=== PATIENT | female | born 1985 ===

== ENCOUNTER 2018-01-29 05:52 | Inpatient (IN) | payer OTHER, SELFPAY ==
[2018-01-29] VITALS (12 sets, daily range): BP systolic 87–114; BP diastolic 26–66
[~2018-01-29] VITALS: Ht 158.8 cm; Wt 67.1 kg
[~2018-01-29 05:52] MED LIST: ACIDOPHILUS1 EAC4 PO; BENADRYL ALLERG25 M1 PO; FLOVENT2 PUFF1 INH; NORCO 10-325 T1 EACH ORAL; TRILEPTAL600 MG PO; VENTOLIN HFA18 GM INH; ZYRTEC10 MG ORAL
[2018-01-29] MEDS ORDERED: Dexamethasone 20mg/5ml IVP ONE (07:00)
[2018-01-29] MEDS ORDERED: Vancomycin 1 GM in D5W 275 ML IVPB ONE (07:00)
[2018-01-29] MEDS ORDERED: Propofol 1,000mg/ 100ml btl IV ONE (09:00)
--- NOTE | 2018-01-29 09:08 | Pre-Procedure Note/Attestation ---
Pre-Procedure Note/Attestation Complete Prior to Procedure Planned Procedure: not applicable Procedure Narrative: C5-6ADR possible ACDF Indications for Procedure Pre-Operative Diagnosis: Trauma Neck pain radiculopathy nerve root compression Attestation I attest that I discussed the nature of the procedure; its benefits; risks and complications; and alternatives (and the risks and benefits of such alternatives ), prior to the procedure, with the patient (or the patient's legal brand representative). I attest that, if there was a reasonable possibility of needing a blood transfusion, the patient (or the patient's legal brand representative) was given the [facility] standardized written summary, pursuant to the [place] Blood Safety Act ([place] Health and Safety Code # 1645, as amended). I attest that I re-evaluated the patient just prior to the surgery and that there has been no change in the patient's H&P, except as documented below: EBONY BECERRA Jan 29, 2018 09:08
[2018-01-29] MEDS ORDERED: LR 1000ml 1,000 ML IVLG SCH (09:19)
--- NOTE | 2018-01-29 09:20 | Anethesia Preoperative Eval ---
Anesthesia Pre-op PMH/ROS General Date of Evaluation: Jan 29, 2018 Time of Evaluation: 09:56 Anesthesiologist: Halle ASA Score: ASA 2 Mallampati Score Class I : Soft palate, uvula, fauces, pillars visible Class II: Soft palate, uvula, fauces visible Class III: Soft palate, base of uvula visible Class IV: Only hard plate visible Mallampati Classification: Class I Surgeon: Gisella Diagnosis: Neck Pain Surgical Procedure: ADR C5-6 Anesthesia History: none Family History: no anesthesia problems Allergies: Coded Allergies: CEPHALOSPORINS (Unverified Allergy, Intermediate, hives, 01/28/18) FLUCONAZOLE (Unverified Allergy, Intermediate, hives, 01/28/18) LATEX (Unverified Allergy, Intermediate, rash, 01/28/18) PENICILLINS (Unverified Allergy, Intermediate, hives, 01/28/18) SESAME SEED (Verified Allergy, Intermediate, anaphylaxiz; hives, 01/28/18) SULFA (SULFONAMIDE ANTIBIOTICS) (Unverified Allergy, Intermediate, hives, 01/28/18) LEGUMES (Verified Adverse Reaction, Intermediate, hives; anaphylaxis, ) Medications: see eMAR Past Medical History Pulmonary: Reports: asthma - Bronchitis Neurologic/Psychiatric: Reports: depression/anxiety - Bipolar PSxH Narrative: Appendectomy Anesthesia Pre-op Phys. Exam Physician Exam Last Vital Signs Date Time Temp Pulse Resp B/P (MAP) Pulse Ox O2 Delivery O2 Flow Rate FiO2 01/29/18 06:27 98.3 81 18 106/65 98 Room Air 98.3 Constitutional: NAD Neurologic: CN 2-12 intact Cardiovascular: RRR Respiratory: CTA Gastrointestinal: S/NT/ND Airway Exam Mallampati Score: Class I MO: full ROM: limited Teeth: intact Anesthesia Pre-op A/P Labs Urine Test Test 01/29/18 06:10 Urine HCG, Qualitative Negative (NEGATIVE) Risk Assessment & Plan Assessment: ASA 2 Plan: GA, BIS, GlideScope Status Change Before Surgery: No Pre-Antibiotics Dru Gram Vancomycin IV Given Within 1 Hr of Incision: Yes Time Given: 10:21 Eddie Neri MD Jan 29, 2018 09:20
[2018-01-29] MEDS ORDERED: oxyCODONE HCL/Acetaminophen 5/325mg ORAL PRN (09:30)
[2018-01-29] MEDS ORDERED: Ketorolac 30mg Inj IV PRN ×3 (09:30→13:30)
[2018-01-29] MEDS ORDERED: Atropine Inj 1mg/10ml Syr IV PRN (09:30)
[2018-01-29] MEDS ORDERED: Midazolam 2mg/2ml Inj IVP PRN (09:30)
[2018-01-29] MEDS ORDERED: HYDROcodone/Acetamin 7.5/325 tab ORAL PRN (09:30)
[2018-01-29] MEDS ORDERED: fentaNYL 100 mcg/2 mL IV PRN (09:30)
[2018-01-29] MEDS ORDERED: Hydromorphone 0.5mg/0.5ml inj IVP PRN (09:30)
[2018-01-29] MEDS ORDERED: LORazepam Inj 2mg/ml 1ml IV PRN (09:30)
[2018-01-29] MEDS ORDERED: Acetaminophen (Non formulary) 100 ML IV ONE (09:30)
[2018-01-29] MEDS ORDERED: Metoclopramide 10mg/2ml Inj IVP PRN (09:30)
[2018-01-29] MEDS ORDERED: Labetalol 5mg/ml 20ml vial IV PRN (09:30)
[2018-01-29] MEDS ORDERED: DiphenhydrAMINE 50mg/ml Inj IVP PRN (09:30)
[2018-01-29] MEDS ORDERED: Norco 5mg/325mg tab ORAL PRN ×2 (09:30→13:30)
[2018-01-29] MEDS ORDERED: Lidocaine 1% Plain 30 ml INJ ONE (09:45)
[2018-01-29] MEDS ORDERED: Bacitracin 50000 Units Vial ONE (09:45)
[2018-01-29] MEDS ORDERED: Vancomycin 1gm inj IVPB ONE (09:56)
[2018-01-29] MEDS ORDERED: Thrombin 5000 units TOPIC ONE ×2 (10:10→12:49)
--- NOTE | 2018-01-29 11:14 | 48 Hour Post Anesthesia Eval ---
Post Anesthesia Evaluation Procedure: ADR C5-6 Date of Evaluation: Jan 29, 2018 Time of Evaluation: 14:57 Blood Pressure Systolic: 109 0: 52 Pulse Rate: 81 Respiratory Rate: 18 Temperature (Fahrenheit): 98.2 O2 Sat by Pulse Oximetry: 97 Airway: patent Nausea: No Vomiting: No Pain Intensity: 3 Hydration Status: adequate Cardiopulmonary Status: Stable Mental Status/LOC: patient returned to baseline Follow-up Care/Observations: 0 Post-Anesthesia Complications: 0 Follow-up care needed: N/A Eddie Neri MD Jan 29, 2018 11:14
--- NOTE | 2018-01-29 11:14 | Immediate Post-Op Evaluation ---
Immediate Post-Op Evalulation Immediate Post-Op Evalulation Procedure: ADR C5-6 Date of Evaluation: Jan 29, 2018 Time of Evaluation: 12:50 IV Fluids: 1000 LR Blood Products: 0 Estimated Blood Loss: 20 Urinary Output: 0 Blood Pressure Systolic: 107 Blood Pressure Diastolic: 54 Pulse Rate: 71 Respiratory Rate: 16 O2 Sat by Pulse Oximetry: 95 Temperature (Fahrenheit): 97.6 Pain Score (1-10): 3 Nausea: No Vomiting: No Complications 0 Patient Status: awake, reacts, patent, extubated, none Hydration Status: adequate Dru Gram Vancomycin IV Given Within 1 Hr of Incision: Yes Time Given: 10:21 Eddie Neri MD Jan 29, 2018 11:14
[2018-01-29] MEDS: D5 1/2NS 1,000 ML IV SCH ×2 (12:50→14:51)
--- NOTE | 2018-01-29 12:50 | Brief Operative Note ---
Immediate Post Operative Note Operative Note Pre-op Diagnosis: Trauma Neck pain radiculopathy nerve root compression Procedure: C5-6 ADR Fluoroscopy Post-op Diagnosis: same as pre-op Findings: consistent w/pre-op dx studies Surgeon: Gisella THACKER Child Care: Deirdre COURTNEY Anesthesiologist: Halle THACKER Anesthesia: general Specimen: yes Complications: none Condition: stable Fluids: anesthesia Estimated Blood Loss: minimal Drains: none Implant(s) used?: Yes EBONY BECERRA Jan 29, 2018 12:50
[2018-01-29] MEDS ORDERED: Naloxone 0.4mg/ml Inj IVP PRN (13:00)
--- NOTE | 2018-01-29 15:42 | Diagnostic Imaging Report ---
Indication: Neck Pain Findings: 2 fluoroscopic views of the cervical spine were obtained. Localization image followed by discectomy and replacement at C5-6. IMPRESSION: Intraoperative imaging
--- NOTE | 2018-01-29 20:15 | Operative Note - Dictated ---
DATE OF OPERATION: 01/29/2018 SURGEON: Leonard Obando, Ph.D., M.D. HEALTH RECORD TECHNICIAN: SHERWIN Rodriguez. ANESTHESIOLOGIST: Dr. Neri. ANESTHESIA: General with intubation. ESTIMATED BLOOD LOSS: Minimal. COMPLICATIONS: None. POSTOPERATIVE CONDITION: Good/stable. PREOPERATIVE DIAGNOSIS: Posttraumatic cervicogenic neck pain with radiculopathy. POSTOPERATIVE DIAGNOSIS: Posttraumatic cervicogenic neck pain with radiculopathy. OPERATIVE PROCEDURE: 1. C5-C6 anterior artificial disk replacement. 2. Intraoperative x-rays interpreted by surgeon. 3. High-powered microscopic dissection. SPECIMEN: Disk fragments to pathology. DESCRIPTION OF PROCEDURE: The patient was brought to the operating room and in the supine position, general anesthesia with intubation was induced. IV vancomycin and 10 mg of Decadron were administered 30 minutes prior to incision time. After appropriate positioning, cross-table imaging was obtained demonstrating the correct level for incision placement and alignment was excellent. Anterior cervical spine was sterilely prepped and draped free in usual sterile fashion. A left lateral incision sharply placed in skin folds through dermis and epidermis. Electrocautery dissection through the subcutaneous tissue to the level of the platysma muscle that was identified, isolated, and transected in line with the incision. Blunt dissection was carried sequentially through the deep cervical and pretracheal fascia to the midline between the right and left longus colli muscles medial to the left carotid sheath and sternocleidomastoid muscle. A spinal needle bent at 90-degree angle so as to avoid penetration greater than 3 mm into the disk space, placed into the disk space, and a cross-table image was obtained under sterile conditions demonstrating the correct level as C5-C6. Level was marked. Needle removed. Longus colli muscles were elevated subperiosteal 3 mm in the mediolateral extent followed with retractor placement. Annulotomy, discectomy with [place] bur dissection with removal of cartilaginous endplates of the posterior longitudinal ligament. Posterior longitudinal ligament resected. Right foraminotomy. No dural tears or leaks noted anytime during the procedure. Appropriate trials utilized with fluoroscopic guidance with determination of the correct size of implant. Technology Integration Specialist recommendations on procedure utilized with cutting of endplates followed with implantation of an appropriately-sized artificial disk. Fit excellent and alignment excellent with fluoroscopic imaging. X-ray undertaken. Wound irrigated with antibiotic-containing saline. Exploration revealed no excoriation or obvious laceration of vital structures. FloSeal applied followed with reapproximation of platysma muscle and subcuticular closure of dermis and epidermis. Surgical strips followed with sterile bandage. The patient was awakened, extubated in the operating room, and transported to postop recovery in good stable condition. Leonard Obando M.D. DR: KIMBERLY JOB#: [id number] CC:
[2018-01-29] MEDS ORDERED: Vancomycin 1 GM in D5W 275 ML IV SCH (21:00)
--- NOTE | 2018-01-31 12:29 | Discharge Summary ---
Discharge Summary Hospital Course Date of Admission Jan 29, 2018 at 14:29 Date of Discharge Jan 29, 2018 at 18:17 Admitting Diagnosis Posttraumatic cervicogenic neck pain with radiculopathy. Reason for Hospitalization: Elective surgery STANFORD Sharpe is a 32 year old female who was admitted on Jan 29, 2018 at 14: 29 for . posttraumatic cervical discogenic pain with radiculopathy. Patient was admitted for elective surgery Procedures s/p by dr Obando 1. C5-C6 anterior artificial disk replacement. 2. Intraoperative x-rays interpreted by surgeon. 3. High-powered microscopic dissection. Hospital Course Status post surgery Course of recovery uneventful Neurovascularly intact Dressing clean dry and intact patient was educated and instructed on spine precaution Ambulated safely Tolerated diet voided freely Discharge instruction provided Follow-up with a surgeon as outpatient as advised FINAL DIAGNOSES Posttraumatic cervicogenic neck pain with radiculopathy. s/p ADR C5-6 Discharge Medications Continued Medications: Albuterol Sulfate (Ventolin Hfa) 18 Gm Hfa.aer.ad 2 PUFFS INH PRN, #18 GM 0 Refills (This prescription has been renewed) Cetirizine Hcl* (Zyrtec*) 10 Mg Tablet 10 MG ORAL DAILY, #30 TAB 0 Refills (This prescription has been renewed) Diphenhydramine Hcl (Benadryl Allergy) 25 Mg Tablet 25 MG PO DAILY, TAB (This prescription has been renewed) Fluticasone Propionate (Flovent Hfa) 10.6 Gm Aer.w.adap 2 PUFFS INH DAILY, #1 EA 0 Refills (This prescription has been renewed) Hydrocodone Bit/Acetaminophen 10-325* ([place] 10-325*) 1 Each Tablet 1 TAB ORAL TID PRN for For Pain, #10 TAB 0 Refills (This prescription has been renewed) PRN PAIN Lactobacillus Acidophilus (Acidophilus) 1 Each Tablet 1 EACH PO DAILY, TAB (This prescription has been renewed) Oxcarbazepine* (Trileptal*) 600 Mg Tablet 300 MG PO BID, TAB (This prescription has been renewed) Discharge Condition Upon Discharge: stable Discharge Disposition Patient was discharged to Home () Discharge Instructions Discharge Instructions Special Instructions I have been assigned to complete a D/C Summary on this account. I was not involved in the patient management Fang Norman NP Jan 31, 2018 12:29
== END 2018-01-29 18:17 | disposition home or self-care (01) | DRG 30 ==
LOC: SDS 05:52 → EDSTATUS 11:00 → 3E 14:29
PROC: 0RR30JZ Replacement of Cervical Vertebral Disc with Synthetic Substitute, Open Approach (ICD-10-PCS; principal; 2018-01-29 11:00)
DX: M54.12 Radiculopathy, cervical region (principal)
CPT/HCPCS: 36415; 72040; 76001; 81025; 86850; 86900; 86901; 87081